=== PATIENT | female | born 1980 | race Caucasian/White ===

== ENCOUNTER → 2024-08-25 | Outpatient (CLI) | payer SELFPAY ==
--- NOTE | 2024-08-25 09:01 | ECHOD_ITS ---
Reason For Study Reason For Study: ARRYTHMIA Procedure This was a 2D Doppler, Color Flow transthoracic echocardiogram. Exam performed in department. Left Ventricle Normal left ventricle. Normal LV thickness. Left ventricular systolic function is normal. The LV ejection fraction is 60 %. Right Ventricle Normal right ventricle. Normal systolic function. Atria Normal left atrium. Normal right atrium. Mitral Valve The mitral valve is structurally normal. No prolapse or stenosis seen. There is no stenosis. No mitral valve insufficiency. Tricuspid Valve Normal tricuspid valve. Aortic Valve Normal aortic valve. Aortic valve appears to be tricuspid. No aortic valve insufficiency. Pulmonic Valve Trivial eccentric pulmonic valve insufficiency. Great Vessels Aortic root dimensions are normal. Pericardium/Pleural No pericardial effusion. MMode/2D Measurements & Calculations LVIDd: 4.3 cm IVSd: 0.78 cm LVOT diam: 1.9 cm LVIDs: 3.0 cm LVPWd: 0.79 cm LVOT area: 3.0 cm2 RVDd: 2.9 cm FS: 30.5 % Ao root diam: 2.6 cm LAV(MOD-bp): 45.9 ml LVAd ap4: 22.6 cm2 LAV(MOD-bp) Indexed: 31.2 ml/m2 LVLd ap4: 6.9 cm LAV(MOD-sp2): 39.1 ml EDV(MOD-sp4): 63.2 ml LAV(MOD-sp4): 46.7 ml EDV(sp4-el): 63.2 ml LVAs ap4: 13.2 cm2 LVLs ap4: 5.6 cm ESV(MOD-sp4): 26.6 ml ESV(sp4-el): 26.4 ml EF(MOD-sp4): 57.9 % EF(sp4-el): 58.2 % SV(MOD-sp4): 36.6 ml SV(sp4-el): 36.8 ml LA A4 area: 18.3 cm2 SI(MOD-sp4): 24.9 ml/m2 LA dimension(2D): 2.3 cm RA A4 area: 14.6 cm2 Time Measurements MV dec time: 0.21 sec Doppler Measurements & Calculations MV E max corby: 65.1 cm/sec Lat Peak E' Corby: 22.2 cm/sec Med Peak E' Corby: 13.9 cm/sec MV A max corby: 51.2 cm/sec E/E' lat: 2.9 E/E' med: 4.7 MV E/A: 1.3 Ao V2 max: 142.5 cm/sec LV V1 max: 141.4 cm/sec MV dec slope: 317.2 cm/sec2 Ao max P.1 mmHg LV V1 max P.0 mmHg Ao V2 mean: 94.0 cm/sec LV V1 mean P.5 mmHg Ao mean P.2 mmHg LV V1 mean: 99.0 cm/sec Ao V2 VTI: 29.5 cm LV V1 VTI: 30.2 cm AV (velocity ratio): 1.0 VARUN(I,D): 3.1 cm2 VARUN(V,D): 3.0 cm2 SV(LVOT): 90.0 ml PA V2 max: 82.2 cm/sec PA V2 mean: 53.6 cm/sec ECHO/Echo Complete Interpretation Summary The LV ejection fraction is 60 %. Left ventricular systolic function is normal. Normal LV thickness Ordering Physician: Mari Alston Referring Physician: Mari Alston Performed By: Nata Mejia RCS
--- OUTSIDE RECORDS SUMMARY | 2024-08-25 11:11 | XMS RPT_ITS | CCD ---
Author Organization [facility] CliniSywv Care Team Providers Care Laborer [employer] Name Role Phone DOLORES MCNAMARA M.D. Attending Unavailable Unavailable Primary Care Provider Mari Choi Referring Unavailable Mari Alston Attending Unavailable Mari Alston Primary Care Unavailable Problems Problem Classification Problem Date Documented Da te Episodic/Chronic Unclassified (1 source) SCREENING Onset: 08-19-2022 Results Test Name Value Interpretation Reference Range Facil ity HPV,CtNg Age Gdon 08-24-2022 . . Normal [facility] Comment on above: Order Comment: Speci men Comment: [id number] Specimen Comment: Source.............Cervix Specimen Comment: LMP / Prev Treat...[id number] Specimen Comment: No. of containers..01 ThinPrep Vial Performed By: #### L 801.8800 #### [place] [address] Age Gdln ACOG 30-65 Normal . [facility] Comment on above: Order Comment: Speci men Comment: [id number] Specimen Comment: Source.............Cervix Specimen Comment: LMP / Prev Treat...[id number] Specimen Comment: No. of containers..01 ThinPrep Vial Performed By: #### L 801.8800 #### [place] [address] Diagnosis: Normal [facility] Comment on above: Order Comment: Speci men Comment: [id number] Specimen Comment: Source.............Cervix Specimen Comment: LMP / Prev Treat...[id number] Specimen Comment: No. of containers..01 ThinPrep Vial Result Comment: NEGA TIVE FOR INTRAEPITHELIAL LESION OR MALIGNANCY. Performed By: #### L 801.8800 #### [place] [address] HPV Aptima Negative Normal Negative [facility] Comment on above: Order Comment: Speci men Comment: [id number] Specimen Comment: Source.............Cervix Specimen Comment: LMP / Prev Treat...[id number] Specimen Comment: No. of containers..01 ThinPrep Vial Result Comment: This nucleic acid amplification test detects fourteen high- risk HPV types (16,18,31,33,35,39,45,51,52,56,58,59,66,68) without differentiation. Performed By: #### L 801.8800 #### [place] [address] HPV Emily Reflex Normal [facility] Comment on above: Order Comment: Speci men Comment: [id number] Specimen Comment: Source.............Cervix Specimen Comment: LMP / Prev Treat...[id number] Specimen Comment: No. of containers..01 ThinPrep Vial Result Comment: Crit eria not met, HPV Genotype not performed. Performed at: = - [facility] [id number] Credit Control Clerk: Abbey Eden MD, Phone: [phone] Performed at: [facility] [address] [place] [id number] Credit Control Clerk: Dawit Aguirre MD, Phone: [phone] Performed at: - [facility] [id number] Credit Control Clerk: Abbey Eden MD, Phone: [phone] Performed By: #### L 801.8800 #### [place] [address] Note: Normal [facility] Comment on above: Order Comment: Speci men Comment: [id number] Specimen Comment: Source.............Cervix Specimen Comment: LMP / Prev Treat...[id number] Specimen Comment: No. of containers..01 ThinPrep Vial Result Comment: The Pap smear is a screening test designed to aid in the detection of premalignant and malignant conditions of the uterine cervix. It is not a diagnostic procedure and should not be used as the sole means of detecting cervical cancer. Both false-positive and false-negative reports do occur. Performed By: #### L 801.8800 #### [place] [address] Performed by: [facility] Comment on above: Order Comment: Speci men Comment: [id number] Specimen Comment: Source.............Cervix Specimen Comment: LMP / Prev Treat...[id number] Specimen Comment: No. of containers..01 ThinPrep Vial Result Comment: Rudi Garcia [employer] Logging Operator (ASCP) Performed By: #### L 801.8800 #### [place] [address] Spec adequacy: [facility] Comment on above: Order Comment: Speci men Comment: [id number] Specimen Comment: Source.............Cervix Specimen Comment: LMP / Prev Treat...[id number] Specimen Comment: No. of containers..01 ThinPrep Vial Result Comment: Sati sfactory for evaluation. Endocervical and/or squamous metaplastic cells (endocervical component) are present. Performed By: #### L 801.8800 #### [place] [address] Test Methodlogy [facility] Comment on above: Order Comment: Speci men Comment: [id number] Specimen Comment: Source.............Cervix Specimen Comment: LMP / Prev Treat...[id number] Specimen Comment: No. of containers..01 ThinPrep Vial Result Comment: This liquid based ThinPrep(R) pap test was screened with the use of an image guided system. Performed By: #### L 801.8800 #### [place] [address] IGP HPV,CTNG AGE GDLN ([id number])on 08-24-2022 Age Gdln ACOG Testing 30-65 [facility] Diagnosis [facility] HPV 16+18+31+33+35+39 +45+51+52+56+58+5 9+68 DNA Probe+sig amp Ql (Cvx) Negative Negative [facility] HPV Genotype Reflex [facility] Note [facility] Performed by [facility] Specimen adequacy: [facility] Test Methodology: [facility] OSBEIDA SCREENING W TOMOon 08-19 [facility] SCREEN DIGITAL BREAST TOMOon 08-19-2022 SCREEN DIGITAL BREAST KARAN [address] [address] Name: ANTONIO YOUNG Krystin Phys: DOLORES MCNAMARA M.D. : 76 Age: 41 Sex: F Acct: [id number] Loc: RAD MAMM Exam Date: 08/19/22 Status: REG CLI Radiology No.: Unit Number: [id number] Exam # Type/Exam [id number] MAMMO / SCREEN DIGITAL BREAST KARAN #[id number] - SCREEN DIGITAL BREAST KARAN BILATERAL DIGITAL SCREENING MAMMOGRAM 3D/2D WITH CAD: 08/19/2022 CLINICAL: Annual Screening. Comparison is made to exams dated: 10/08/2011 ultrasound and 10/08/2011 mammogram - [facility] [place]. The tissue of both breasts is extremely dense, which lowers the sensitivity of mammography. Current study was also evaluated with a Computer Aided Detection (CAD) system. No significant masses, calcifications, or other findings are seen in either breast. There has been no significant interval change. IMPRESSION: NEGATIVE There is no mammographic evidence of malignancy. A 1 year return mammogram is recommended.(08/20/2023 ) The patient was notified of the results. Electronically signed by: Donte sandhu/marie:08/19/2022 08:55:59 Mold Maker Helper(s): RT Charleen(R)(M), [facility] BI-RADS: 1 Negative REPORT SIGNATURE ON FILE Reported By: DONTE BELL D.O. << Signature on File>> Reported By: DONTE BELL D.O. Signed By: DONTE BELL D.O. Tests performed at: [address] [address] Normal [facility] Encounters Encounter Date Encounter Type Care Provider Facility Start: 07-21-2024 ambulatory Mari Alston Facility: [facility] Start: 08-19-2022 ambulatory DOLORES Rascon ility:[facility] Start: 08-19-2022 End: 08-19-2022 Subsequent hospital visit by physician Provider [facility] Comment on above: SCREENING Start: 08-17-2022 ambulatory DOLORES MCNAMARA Fac ility:[facility] Start: 08-17-2022 End: 08-17-2022 Subsequent hospital visit by physician Provider [facility] Procedures Date Procedure Procedure Detail Performing Clinician Start: 08-19-2022 Screening digital br [place] [facility] Dolores Mcnamara MD Work Phone: Start: 08-17-2022 IGP HPV,CTNG AGE GDL N ([id number]) Dolores Mcnamara MD Work Phone: Payers Date Payer Category Payer Self-pay 2009 Unknown [id number] 2009 Unknown [id number] Unknown [id number] Unknown [id number] Social History Date Type Detail Facility Tobacco smoking stat RUSTIS Tobacco smoking consumption unknown [facility] Start: 1980 Sex Assigned At Not on file [facility] Gender identity Not on file [facility] inic Summary Purpose Family History No Family History Records FoundNo Family History Records FoundNo Family History Records Found Advance Directives No Advanced Directives Records FoundNo Advanced Directives Records FoundNo Advanced Directives Records Found Additional Source Comments INFORMATION SOURCE (unrecogn ized section and content) DATE CREATED AUTHOR 08/24/2022 [facility] DATE CREATED AUTHOR AUTHOR'S ORGANIZ ATION 08/28/2022 [facility] DATE CREATED AUTHOR AUTHOR'S ORGANIZ ATION 07/24/2024 [facility] Source Comments (unrecognize d section and content) In the event this informatio n is protected by the Federal Confidentiality of Alcohol and Drug Abuse Patient Records regulations: The Federal rules restrict any use of the information to criminally investigate or prosecute any alcohol or drug abuse patient.[facility] the event this information is protected by the Federal Confidentiality of Alcohol and Drug Abuse Patient Records regulations: The Federal rules restrict any use of the information to criminally investigate or prosecute any alcohol or drug abuse patient.[facility] FOR RECORDS PERTAINING TO PATIENTS WHO ARE OR HAVE BEEN ENROLLED IN A CHEMICAL DEPENDENCY/SUBSTANCEABUSE PROGRAM, SOME INFORMATION MAY BE OMITTED. This clinical summary was aggregated from multiple sources. Caution should be exercised in using it in the provision of clinical care. This summary normalizes information from multiple sources, and as a consequence, information in this document may materially change the coding, format and clinical context of patient data. In addition, data may be omitted in some cases. CLINICAL DECISIONS SHOULD BE BASED ON THE PRIMARY CLINICAL RECORDS. [facility] [email or web address] [facility]. provides no warranty or guarantee of the accuracy or completeness of information in this document.
== END | disposition home or self-care (01) ==
LOC: CVS 08:56
PROVIDERS: PCP Nurse Practitioner Family; Referring Provider Nurse Practitioner Family; Visit Provider Nurse Practitioner Family
DX: I49.9 Cardiac arrhythmia, unspecified (principal)
CPT/HCPCS: 93306